=== PATIENT | male | born 1950 | race Caucasian/White ===

== ENCOUNTER 2023-04-28 08:18 | Inpatient (IN) ==
[2023-04-28] MEDS ORDERED: NS 500 ML IV 500 ML IV ONE ×2 (08:30→08:49)
[2023-04-28 08:34] VITALS: BMI 19.2
--- NOTE | 2023-04-28 08:39 | DR.DIARMA ---
HPI Time seen Time Seen by Provider: 04/28/23 08:37 PCP Primary Care Physician: SAW HPI Comment HPI Comment: Patient is 72yr old male in ER with history of diarrhea for 5 days. Patient is from [facility]. He had hand cellilitis and was treated in house and out patient with antibiotic. he is better but 5 days ago diarrhea started. No vomiting or dysuria. History COPD, A FIB and CHF and have pace maker. He is weak and fatigue. Complaint Chief Complaint Doctor Comments: Diarrhea times 5 days. Worse today. Chief Complaint:: Patient states he is visiting his mother from [place] and has had severe diarrhea for the past 5 days. He states he had a staff infection to left hand and received some strong antibiotcs last Sunday. COVID-19 Coronavirus risk:travel/contact w/high risk person: No Has patient experienced Coronavirus symptoms: No Reviewed Nurses notes reviewed: Yes Source History Provided: Patient Mode of Arrival Mode of Arrival: Wheelchair Timing Onset of Chief Complaint: 04/23/23 PMH PMH Past Medical History: Yes Past Medical History: CHF Past Medical History Comment: Prostate CA, pacemaker Past Surgical History: Yes Past Surgical History Comment: Radiation seed implants, pacemaker Family History History of Family Medical Conditions: Yes Family Medical History: Diabetes Mellitus, Coronary Artery Disease and Hypertension Social History Does patient currently use any type of tobacco product: No Have you used tobacco products in the last 12 months: No Type of Tobacco Use: None Does any household member use tobacco: No Alcohol Use: None Do you use any recreational Drugs:: No Lives With: Family Lives Where: Home Travel Risk Coronavirus risk:travel/contact w/high risk person: No Has patient experienced Coronavirus symptoms: No Infectious screening In the last 2 months have you had wt loss of >10#?: YES Have you had fever, night sweats or hemotysis?: No Have you traveled outside the country in the last 6 months?: No Isolation: Standard ROS Review of Systems Constitutional: Weakness and Fatigue; negative Fever Eyes: No Symptoms Reported; negative Blurred Vision ENTM: No Symptoms Reported; negative Nose Discharge or Nose Congestion Respiratoy: No Symptoms Reported; negative Moist Cough, Short of Breath or Wheezing Cardiovascular: Edema (2 plus.); negative Chest Pain Gastrointestinal/Abdominal: Diarrhea; negative Abdominal Pain, Nausea or Vomiting Genitourinary: No Symptoms Reported; negative Dysuria Neurological: Weakness; negative Headache or Dizziness Musculoskeletal: Back Pain and Muscle Pain Integumentary: No Symptoms Reported; negative Rash or Juandice Hematologic/Lymphatic: Easy Bleeding and Easy Bruising Endocrine: No Symptoms Reported; negative Increased Thirst or Increased Urine Psychiatric: No Symptoms Reported All Other Systems: Reviewed and Negative PE Vital Signs Vitals: Vital Signs Pulse Rate 76 Pulse Rate 76 Pulse Rate 93 Pulse Rate 89 Pulse Rate 81 Respiratory Rate 11 Respiratory Rate 28 Respiratory Rate 31 Blood Pressure 98/54 Blood Pressure 104/56 O2 Sat by Pulse Oximetry 100 O2 Sat by Pulse Oximetry 100 O2 Sat by Pulse Oximetry 100 O2 Sat by Pulse Oximetry 92 O2 Sat by Pulse Oximetry 99 General Limitations: No Limitations General Appearance: Alert and In Distress Head Head Exam: Normal Inspection; negative Atraumatic Eyes Eye exam: Normal Appearance; negative Scleral Icterus or Conjunctival Injection ENT ENT Exam: Normal Exam, Normal Oropharynx, Normal External Ear Exam and TM's Normal Bilaterally Neck Neck Exam: Normal Inspection and Trachea Midline; negative Tenderness Chest Chest Inspection: Normal Inspection and Symmetric Chest Wall Rise; negative Tenderness Respiratory Respiratory Exam: Normal Lung Sounds Bilat; negative Accessory Muscle Use, Chest Wall Tenderness or Respiratory Distress Respiratory Exam: Bilateral: Rhonchi Cardiovascular Cardiovascular Exam: Irregular Rhythm; negative Systolic Murmur or Diastolic Murmur Abdominal Exam Abdominal Exam: Normal Inspection, Normal Bowel Sounds and Soft; negative Tenderness Rectal Rectal: Deferred Genitourinary Scrotum: Deferred Extremeties Extremities Exam: Normal Capillary Refill and Edema (2 plus.) Back Back Exam: Normal Inspection; negative (R) CVA Tenderness or (L) CVA Tenderness Neurologic Neurological Exam: Alert and Oriented X3; negative Motor Sensory Deficit Psychiatric Psychiatric Exam: Normal Affect and Normal Mood Skin Skin Exam: Dry MDM Differential Diagnosis Differential Diagnosis: Diarrhea Bacterial, Diarrhea Parasitic, Diarrhea Viral, Diverticular disease, Gastroenteritis, Inflammatory BD and Other (comments) (CHF, COPD, ACUTE RENAL FAILURE, UTI, DEHYDRATION.) COURSE Treatment Treatment: SEE ORDERS DONE WHILE PATIENT WAS IN ER. LABS, XRAY AND CT DISCUSSED. WILL ADMIT TO HOSPITAL FOR FURTHER MANAGEMENT. Consultation Consultation Comments: DISCUSSED PATIENT WITH DR. JORGE. HE WILL ADMIT PATIENT. Education/Counseling Education/Counseling: Patient and Family Educated On: Diagnosis ROR Labs Reviewed Laboratory Results Reviewed?: Yes 04/28/23 14:55 04/28/23 08:42 Laboratory: 04/28/23 08:40 Stool - Final WBC 5.2 X10^3/uL (3.6-10.0) 04/28/23 08:42 RBC 2.77 X10^6/uL (4.7-6.0) L 04/28/23 08:42 Hgb 8.0 g/dL (13.5-18.0) L 04/28/23 08:42 Hct 23.8 % (42.0-54.0) L 04/28/23 08:42 MCV 85.9 fL (80.0-100.0) 04/28/23 08:42 MCH 28.9 pg (27.0-34.0) 04/28/23 08:42 MCHC 33.6 g/dL (33.0-35.0) 04/28/23 08:42 RDW 16.4 % (11.6-16.5) 04/28/23 08:42 Plt Count 186 X10^3/uL (150.0-450.0) 04/28/23 08:42 MPV 9.0 fL (7.4-11.0) 04/28/23 08:42 Neut % (Auto) 74.1 % (42.0-75.0) 04/28/23 08:42 Lymph % (Auto) 10.8 % (21.0-51.0) L 04/28/23 08:42 Kimble % (Auto) 9.4 % (0.0-13.0) 04/28/23 08:42 Eos % (Auto) 3.3 % (0.9-2.9) H 04/28/23 08:42 Baso % (Auto) 2.4 % (0.2-1.0) H 04/28/23 08:42 Neut # (Auto) 3.8 x10^3/uL (2.2-4.8) 04/28/23 08:42 Lymph # (Auto) 0.6 X10^3/uL (1.3-2.9) L 04/28/23 08:42 Kimble # (Auto) 0.5 x10^3/uL (0.3-0.8) 04/28/23 08:42 Eos # (Auto) 0.2 x10^3/uL (0.0-0.2) 04/28/23 08:42 Baso # (Auto) 0.1 X10^3/uL (0.0-0.1) 04/28/23 08:42 Absolute Nucleated RBC 0.1 /100WBC 04/28/23 08:42 PT 60.0 SECONDS (11.8-14.3) 04/28/23 08:42 INR Target Range - 04/28/23 08:42 INR 7.09 (0.8-1.3) H* 04/28/23 08:42 APTT 77.4 SECONDS (22.9-36.5) H 04/28/23 08:42 PTT Comment - 04/28/23 08:42 Sodium 139 mmol/L (136-145) 04/28/23 08:42 Corrected Sodium TNP 04/28/23 08:42 Potassium 3.9 mmol/L (3.5-5.1) 04/28/23 08:42 Chloride 101 mmol/L (98-107) 04/28/23 08:42 Carbon Dioxide 25.3 mmol/L (21-32) 04/28/23 08:42 BUN 134 mg/dL (7-18) H 04/28/23 08:42 Creatinine 3.55 mg/dL (0.70-1.30) H 04/28/23 08:42 Est GFR (MDRD) Af Amer 22 (>60) L 04/28/23 08:42 Est GFR (MDRD) Non-Af 18 (>60) L 04/28/23 08:42 Glucose 98 mg/dL (65-99) 04/28/23 08:42 Calcium 8.5 mg/dL (8.5-10.1) 04/28/23 08:42 Corrected Calcium 9.6 mg/dL (8.5-10.1) 04/28/23 08:42 Total Bilirubin 0.60 mg/dL (0.2-1.0) 04/28/23 08:42 AST 34 Units/L (15-37) 04/28/23 08:42 ALT 11 Units/L (12-78) L 04/28/23 08:42 Alkaline Phosphatase 82 Units/L (46-116) 04/28/23 08:42 B-Natriuretic Peptide 491 pg/mL (0-79) H 04/28/23 08:42 Total Protein 6.4 g/dL (6.4-8.2) 04/28/23 08:42 Albumin 2.6 g/dL (3.4-5.0) L 04/28/23 08:42 Globulin 3.8 g/dL (2.5-4.5) 04/28/23 08:42 Albumin/Globulin Ratio 0.7 Ratio (1.1-2.1) L 04/28/23 08:42 Amylase 57 Units/L (25-115) 04/28/23 08:42 Lipase 96 Units/L (73-393) 04/28/23 08:42 Stl Occult Blood (IFOB) Positive (NEGATIVE) A 04/28/23 08:40 Stool for White Cells Positive (NEGATIVE) A 04/28/23 08:40 Stl C. diff Tox B Gene Negative (NEGATIVE) 04/28/23 08:40 Stl C. diff [id number] Presumptive negative (NEGATIVE) 04/28/23 08:40 Stool H. pylori Ag Negative (NEGATIVE) 04/28/23 08:40 SARS-CoV-2 (PCR) Negative (NEGATIVE) 04/28/23 09:46 Cryptosporid parvum Ag Negative (NEGATIVE) 04/28/23 08:40 Giardia lamblia Ag Negative (NEGATIVE) 04/28/23 08:40 Influenza Type A (PCR) Negative (NEGATIVE) 04/28/23 09:46 Influenza Type B (PCR) Negative (NEGATIVE) 04/28/23 09:46 RSV (PCR) Negative (NEGATIVE) 04/28/23 09:46 XRAY XRAY Interpreted by: Radiologist (REPORT NOTED.) and Self Opioid Opioid Risk Tool Age ([place] box if 16-45): No History of Preadolescent Sexual Abuse: No Total: 0 Total Score Risk Category: Low Risk Copyright: [place] predicting aberrant behaviors Discharge Plan Diagnosis Discharge Problem: Dehydration, COPD exacerbation, Hypercoagulable state, Acute GI bleeding Acute renal failure Qualifiers: Acute renal failure type: unspecified Qualified Code(s): N17.9 - Acute kidney failure, unspecified Diarrhea Qualifiers: Diarrhea type: unspecified type Qualified Code(s): R19.7 - Diarrhea, unspecified CHF (congestive heart failure) Qualifiers: Heart failure type: combined systolic and diastolic Heart failure chronicity: acute on chronic Qualified Code(s): I50.43 - Acute on chronic combined systolic (congestive) and diastolic (congestive) heart failure Anemia Qualifiers: Anemia type: unspecified type Qualified Code(s): D64.9 - Anemia, unspecified Discharge Plan Patient Disposition: 09 ADMITTED INPATIENT Condition: Stable
[2023-04-28] MEDS ORDERED: NS 1,000 ML IV 1,000 ML IV ONE (08:44)
[2023-04-28 08:54] LABS: WHITE BLOOD COUNT 5.2 X10^3/uL (3.6-10.0)
[2023-04-28 08:57] LABS: BASOPHILS # (AUTO) 0.1 X10^3/uL (0.0-0.1); BASOPHILS % (AUTO) 2.4 % (0.2-1.0); EOSINOPHILS # (AUTO) 0.2 x10^3/uL (0.0-0.2); EOSINOPHILS % (AUTO) 3.3 % (0.9-2.9); HEMATOCRIT 23.8 % (42.0-54.0); LYMPHOCYTES # (AUTO) 0.6 X10^3/uL (1.3-2.9); LYMPHOCYTES % (AUTO) 10.8 % (21.0-51.0); MEAN CORPUSCULAR HEMOGLOBIN 28.9 pg (27.0-34.0); MEAN CORPUSCULAR HGB CONC 33.6 g/dL (33.0-35.0); MEAN CORPUSCULAR VOLUME 85.9 fL (80.0-100.0); MONOCYTES # (AUTO) 0.5 x10^3/uL (0.3-0.8); MONOCYTES % (AUTO) 9.4 % (0.0-13.0); NEUTROPHILS # (AUTO) 3.8 x10^3/uL (2.2-4.8); NEUTROPHILS % (AUTO) 74.1 % (42.0-75.0); PLATELET COUNT 186 X10^3/uL (150.0-450.0); RED BLOOD COUNT 2.77 X10^6/uL (4.7-6.0); RED CELL DISTRIBUTION WIDTH 16.4 % (11.6-16.5)
[2023-04-28 09:09] LABS: ALANINE AMINOTRANSFERASE 11 Units/L (12-78); ALBUMIN 2.6 g/dL (3.4-5.0); ALKALINE PHOSPHATASE 82 Units/L (46-116); AMYLASE 57 Units/L (25-115); ASPARTATE AMINO TRANSFERASE 34 Units/L (15-37); BLOOD UREA NITROGEN 134 mg/dL (7-18); CALCIUM 8.5 mg/dL (8.5-10.1); CARBON DIOXIDE 25.3 mmol/L (21-32); CHLORIDE 101 mmol/L (98-107); COR CA(FOR HYPOALB) 9.6 mg/dL (8.5-10.1); CREATININE 3.55 mg/dL (0.70-1.30); GLUCOSE 98 mg/dL (65-99); LIPASE 96 Units/L (73-393); POTASSIUM 3.9 mmol/L (3.5-5.1); SODIUM 139 mmol/L (136-145); TOTAL PROTEIN 6.4 g/dL (6.4-8.2); eGFR NON BLACK RACES 18 (>60)
--- NOTE | 2023-04-28 09:15 | EKG ---
Test Reason : Frequent PVCs Blood Pressure : */* mmHG Vent. Rate : 86 BPM Atrial Rate : * BPM P-R Int : * ms QRS Dur : 138 ms QT Int : 430 ms P-R-T Axes : * 94 -72 degrees QTc Int : 514 ms Atrial fibrillation with frequent ventricular-paced complexes Right bundle branch block Possible Inferior infarct , age undetermined T wave abnormality, consider lateral ischemia Abnormal ECG No previous ECGs available Confirmed by Bradford Wilkins ([id number]) on 04/28/2023 4:50:31 PM Referred By: Confirmed By: Bradford Wilkins
--- NOTE | 2023-04-28 09:26 | RAD ---
EXAM:Portable AP chestHISTORY:SOB, prostate CACOMPARISON:NoneFINDINGS:Cardiomegaly is present with pacemaker. The heart and mediastinum are shifted to the right. Airspace disease and pleural density are present at the right base obscuring the normal right diaphragm and costophrenic angle. The left lung is clear.IMPRESSION:Cardiomegaly. Pleural-parenchymal findings at the right base are nonspecific and may represent chronic scarring or a more acute inflammatory process. There is no prior exam to compare. Follow-up indicated.THIS IS AN ELECTRONICALLY VERIFIED FINAL REPORT04/28/2023 9:19 AM - Electronically signed by Zack Argueta MD
[2023-04-28 09:39] LABS: CRYPTOSPORIDIUM PARVUM ANTIGEN NEGATIVE (NEGATIVE); GIARDIA LAMBLIA ANTIGEN NEGATIVE (NEGATIVE)
--- NOTE | 2023-04-28 09:45 | CT ---
EXAM:ABDOMEN/PELVIS W/O CONHISTORY:Abdominal pain and diarrheaCOMPARISON:None available.TECHNIQUE:Multiple non contrast axial images of the abdomen and pelvis were obtained from the lung bases to the pubic symphysis.. Dose reduction techniques including Automated Exposure Control (AEC) and adjustment of mA and kV were utlized.FINDINGS:The sensitivity for focal lesion detection within the solid abdominal viscera is diminished without the use of IV contrast.The heart is normal in size. Cardiomegaly. Severe coronary calcification. Rounded atelectasis of right lung base with associated chronic effusion. Small left effusion as well.Markedly cirrhotic morphology of the liver. Small volume ascites. No focal lesions. No ductal dilitation. Gallstones present. No evidence of acute gallbladder inflammation. The pancreas is unremarkable. Adrenal glands are normal. Kidneys are without hydronephrosis or nephrolithiasis. Infrarenal abdominal aortic aneurysms measuring 3.5 cm.Severe diverticulosis with what appears to be and inflammatory fistulous tract from the sigmoid colon to an intramural fluid and gas collection within the wall of the bladder dome. This can best be seen on series 5, image 26 and series 3 image 72. This measures 5.5 x 6.4 x 3.5 cm. Prostate nonenlarged. Brachytherapy seeds in prostate gland. 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 This patient will require surgical consultation.2. Infrarenal abdominal aortic aneurysms.3. Cirrhosis of the liver and small volume ascites.4. Rounded atelectasis of the right lung base with chronic effusion.THIS IS AN ELECTRONICALLY VERIFIED FINAL REPORT04/28/2023 9:42 AM - Electronically signed by Amrit Gloria MD
[2023-04-28 09:51] LABS: INR 7.09 (0.8-1.3)
[2023-04-28] MEDS ORDERED: AQUA-MEPHYTON ADULT INJ SC ONE (10:30)
[2023-04-28] MEDS ORDERED: AQUA-MEPHYTON ADULT INJ ONE (10:39)
[2023-04-28] MEDS ORDERED: PROTONIX INJ 40 MG VIAL ONE (10:40)
[2023-04-28] MEDS ORDERED: NS 100 ML IV 100 ML ONE (10:40)
[2023-04-28] MEDS: PROTONIX INJ 40 MG VIAL 80 MG in NS 100 ML IV 80 ML IV SCH ×4 (10:56→20:10)
[2023-04-28] MEDS ORDERED: LOMOTIL PO ONE (11:15)
[2023-04-28] MEDS ORDERED: LOMOTIL PO PRN (11:15)
[2023-04-28] MEDS ORDERED: LOMOTIL ONE (11:27)
[2023-04-28] MEDS: NS 1,000 ML IV 1,000 ML IV SCH ×2 (12:26→18:39)
[2023-04-28] MEDS: XOPENEX 1.25 MG/3 ML NEBULE NEB SCH ×2 (13:08→20:10)
[2023-04-28 15:04] LABS: HEMATOCRIT 23.4 % (42.0-54.0); HEMOGLOBIN 7.9 g/dL (13.5-18.0)
[2023-04-28 16:32] LABS: BILIRUBIN,URINE NEGATIVE (NEGATIVE); BLOOD/HEMOGLOBIN,URINE 2+ (NEGATIVE); GLUCOSE, URINE NEGATIVE (NEGATIVE); KETONES,URINE NEGATIVE (NEGATIVE); LEUKOCYTE ESTERASE ,URINE NEGATIVE (NEGATIVE); NITRITES,URINE NEGATIVE (NEGATIVE); PROTEIN,URINE 1+ (NEGATIVE); UROBILINOGEN,URINE NORMAL (NORMAL)
[2023-04-28 16:33] LABS: APPEARANCE,URINE CLEAR (CLEAR); COLOR,URINE YELLOW (YELLOW)
[2023-04-28 16:40] LABS: BACTERIA,URINE NEGATIVE /HPF (NEGATIVE); SQUAMOUS EPITHELIAL CELL,UR RARE /HPF (NEGATIVE)
[2023-04-28] MEDS ORDERED: PULMICORT NEB TX 0.5 MG NEB ONE (19:04)
[2023-04-28] MEDS: PULMICORT NEB TX 0.5 MG NEB SCH (20:10)
[2023-04-28 20:46] LABS: HEMATOCRIT 21.3 % (42.0-54.0); HEMOGLOBIN 7.2 g/dL (13.5-18.0)
[2023-04-28 20:47] LABS: INR 3.36 (0.8-1.3)
[2023-04-28] MEDS: AMBIEN PO PRN (21:47)
[2023-04-29] MEDS: NS 1,000 ML IV 1,000 ML IV SCH ×2 (02:53→11:38)
[2023-04-29 02:55] LABS: BASOPHILS # (AUTO) 0.1 X10^3/uL (0.0-0.1); EOSINOPHILS # (AUTO) 0.1 x10^3/uL (0.0-0.2); EOSINOPHILS % (AUTO) 3.9 % (0.9-2.9); HEMATOCRIT 20.1 % (42.0-54.0); LYMPHOCYTES # (AUTO) 0.4 X10^3/uL (1.3-2.9); LYMPHOCYTES % (AUTO) 10.4 % (21.0-51.0); MEAN CORPUSCULAR HEMOGLOBIN 29.4 pg (27.0-34.0); MEAN CORPUSCULAR HGB CONC 34.2 g/dL (33.0-35.0); MEAN CORPUSCULAR VOLUME 86.1 fL (80.0-100.0); MONOCYTES # (AUTO) 0.4 x10^3/uL (0.3-0.8); MONOCYTES % (AUTO) 11.9 % (0.0-13.0); NEUTROPHILS # (AUTO) 2.6 x10^3/uL (2.2-4.8); NEUTROPHILS % (AUTO) 71.8 % (42.0-75.0); PLATELET COUNT 141 X10^3/uL (150.0-450.0); RED BLOOD COUNT 2.34 X10^6/uL (4.7-6.0); RED CELL DISTRIBUTION WIDTH 16.7 % (11.6-16.5); WHITE BLOOD COUNT 3.6 X10^3/uL (3.6-10.0)
[2023-04-29 02:57] LABS: HEMOGLOBIN 6.9 g/dL (13.5-18.0); INR 2.35 (0.8-1.3)
[2023-04-29 03:02] LABS: ALANINE AMINOTRANSFERASE 10 Units/L (12-78); ALBUMIN 2.4 g/dL (3.4-5.0); ALKALINE PHOSPHATASE 69 Units/L (46-116); ASPARTATE AMINO TRANSFERASE 29 Units/L (15-37); BLOOD UREA NITROGEN 115 mg/dL (7-18); CARBON DIOXIDE 27.3 mmol/L (21-32); CHLORIDE 106 mmol/L (98-107); COR CA(FOR HYPOALB) 9.3 mg/dL (8.5-10.1); CREATININE 2.84 mg/dL (0.70-1.30); GLUCOSE 88 mg/dL (65-99); MAGNESIUM 2.1 mg/dL (2.0-2.9); POTASSIUM 3.5 mmol/L (3.5-5.1); SODIUM 142 mmol/L (136-145); TOTAL PROTEIN 5.8 g/dL (6.4-8.2); eGFR NON BLACK RACES 23 (>60)
[2023-04-29] MEDS: PROTONIX INJ 40 MG VIAL 80 MG in NS 100 ML IV 80 ML IV SCH ×4 (04:01→22:06)
[2023-04-29] MEDS ORDERED: CONSULT PHARMACY - POTASSIUM & MAGNESIUM XX SCH (05:00)
[2023-04-29] MEDS: XOPENEX 1.25 MG/3 ML NEBULE NEB SCH ×3 (05:32→20:45)
[2023-04-29] MEDS: PULMICORT NEB TX 0.5 MG NEB SCH ×2 (08:28→20:45)
[2023-04-29] MEDS ORDERED: MICRO K EXTEN CAP 10 MEQ PO SCH (09:00)
[2023-04-29] MEDS: LIPITOR TAB 20 MG PO SCH (10:04)
[2023-04-29 10:12] LABS: HEMATOCRIT 21.1 % (42.0-54.0)
[2023-04-29] MEDS ORDERED: NS 500 ML IV 500 ML IV ONE (11:12)
[2023-04-29 19:40] LABS: HEMATOCRIT 27.6 % (42.0-54.0)
[2023-04-29 19:44] LABS: HEMOGLOBIN 9.3 g/dL (13.5-18.0)
--- NOTE | 2023-04-29 20:26 | DR.CONSULT ---
CONSULT Consultation for Day of: Date: 04/28/23 Chief Complaint Chief Complaint: Patient presented to the emergency room complaining of diarrhea and lower abdominal pain. CT scan shows evidence of ascites, cirrhosis, diverticulitis of the sigmoid colon with fistula to the bladder and possible abscess. Patient currently on IV antibiotics. I have been consulted to see him. Past medical history of congestive heart failure, alcohol abuse, cirrhosis, congestive heart failure, pacemaker placement of pacemaker defibrillator .History of prostate cancer treated with insertion of prostate seeds for radiation . Allergies Allergies Allergy/AdvReac Type Severity Reaction Status Date / Time iodine Allergy Verified 04/28/23 08:25 Penicillins Allergy Verified 04/29/23 10:03 History of Present Illness History of Present Illness: see above Past Medical History Past Medical History: Cirrhosis, CHF (has pacemaker/defibrillator), COPD, Dyslipidemia and Hypertension Past Surgical History Surgical History: Other (placement of pacemaker defibrillator ) Family History Family Medical History: [place], Heart Failure and Hypertension Social History Does patient currently use any type of tobacco product: No Have you used tobacco products in the last 12 months: No Type of Tobacco Use: None Does any household member use tobacco: No Alcohol Use: None Drug Use: None Medications Home Medications: iodine Allergy (Verified 04/28/23 08:25) Penicillins Allergy (Verified 04/29/23 10:03) CONTINUE taking the following medications atorvastatin 20 mg tablet 20 mg PO DAILY 04/28/23 [History] furosemide 80 mg tablet (Lasix) 80 mg PO DAILY 04/28/23 [History] lisinopril 2.5 mg tablet 2.5 mg PO DAILY 04/28/23 [History] warfarin 5 mg tablet 5 mg PO DAILY 04/28/23 [History] Review of Systems Constitutional: See HPI and Other (patient thin and cachectic, appears ill ) Eyes: No Symptoms Reported ENT: No Symptoms Reported Respiratory: See HPI Cardiovascular: See HPI Gastrointestinal: See HPI Genitourinary: See HPI Musculoskeletal: No Symptoms Reported Skin: No Symptoms Reported Neurological: No Symptoms Reported Physical Exam Vital Signs: Vital Signs Pulse Rate 82 Pulse Rate 84 Pulse Rate 85 Pulse Rate 80 Pulse Rate 82 Pulse Rate 92 Pulse Rate 86 Pulse Rate 85 Pulse Rate 81 Pulse Rate 81 Respiratory Rate 24 Respiratory Rate 20 Respiratory Rate 19 Respiratory Rate 20 Respiratory Rate 20 Respiratory Rate 20 Respiratory Rate 21 Respiratory Rate 20 Respiratory Rate 20 Blood Pressure 99/55 Blood Pressure 99/55 Blood Pressure 98/57 Blood Pressure 96/60 Blood Pressure 106/58 Blood Pressure 109/61 Blood Pressure 107/58 Blood Pressure 108/55 O2 Sat by Pulse Oximetry 100 O2 Sat by Pulse Oximetry 100 O2 Sat by Pulse Oximetry 100 O2 Sat by Pulse Oximetry 100 O2 Sat by Pulse Oximetry 100 O2 Sat by Pulse Oximetry 98 O2 Sat by Pulse Oximetry 99 O2 Sat by Pulse Oximetry 100 O2 Sat by Pulse Oximetry 99 O2 Sat by Pulse Oximetry 99 CT abdomen with evidence of cirrhosis and ascites, umbilical hernia, diverticulitis of the sigmoid colon with colo- vesicle fistula and possible abscess of the dome of the bladder. Hgb on admission 7.2,BUN on admission 115, Cr= 3.35 on admission INR=7.09, PTT=77.4 Oriented: Normal, Time, Person and Place Eyes: Normal Ear: Normal Nose: Normal Throat: Normal Respiratory: Rhonchi Throughout Cardiovascular: Other (Paced rhythm ) : Other (Shen catheter could not be placed despite multiple attempts. Probably due to radiation therapy from the prostatic seeds planted ) Auscultation: Bowel Sounds: Normal Palpation: Other (not tender. Ascites with umbilical hernia which is reducible. Minimal hypogastric pain to palpation ) Tenderness: Normal Skin: Normal Musculoskeletal: Normal Psychiatric: Normal Mood Description: Calm Affect: Normal Speech Pattern: Clear Plan (1) Colovesical fistula: Status: Acute Plan: Treat patient with IV antibiotics. Correct dehydration and coagulopathy . Use blood and blood products as necessary. This patient is at high risk surgical candidate that will require sigmoid colectomy with colostomy and possible repair of bladder. Patient may be a candidate for colostomy takedown in the future but it is doubtful secondary to his multiple problems including heart failure and ascites with cirrhosis. (2) Cirrhosis: Status: Acute Plan: see above (3) Umbilical hernia: Status: Acute Plan: Can possibly be repaired at the time of the sigmoid colectomy (4) Dehydration: Status: Acute Plan: aggressive hydration (5) Acute renal failure: Status: Acute Qualifiers: Acute renal failure type: unspecified Qualified Code(s): N17.9 - Acute kidney failure, unspecified Narrative Support Text: aggressive hydration (6) Diarrhea: Status: Acute Qualifiers: Diarrhea type: unspecified type Qualified Code(s): R19.7 - Diarrhea, unspecified Plan: hydration (7) CHF (congestive heart failure): Status: Acute Qualifiers: Heart failure chronicity: acute on chronic Heart failure type: combined systolic and diastolic Qualified Code(s): I50.43 - Acute on chronic combined systolic (congestive) and diastolic (congestive) heart failure Narrative Support Text: Must be monitored carefully as he is aggressively hydrated. May require echocardiogram. (8) Coagulation disorder: Status: Acute Plan: Patient treated with vitamin K. This may need to be repeated. May re quire fresh frozen plasma. Currently no active bleeding.
--- NOTE | 2023-04-29 20:53 | NOTE.SOAP ---
Soap Note Note for Day of Date of Exam: 04/29/23 Subjective Data Subjective Data: Patient is stable. Diarrhea is better. Vital signs stable. Dehydration and coagulopathy being corrected but not completely corrected as of yet. Objective Data Temperature: 97.8 F Pulse Rate: 81 Respiratory Rate: 28 Blood Pressure: 107/81 O2 Sat by Pulse Oximetry: 100 Objective Data: Abdomen benign with ascites, positive fluid wave and umbilical hernia. Hgb=9.3 after blood, Cr=2.84, LZV=839 , LFTs WNL Assessment Assessment: Diverticulitis with colo-vesicle fistula and possible abscess, dehydration, coaguloapathy, cirrhosis Plan Plan: patient is stable. He splits time between here and [place]. I believe he would like to go back to [place] for surgery. I think he will need to be a direct transfer.
[2023-04-29] MEDS: AMBIEN PO PRN (22:11)
[2023-04-30] MEDS: PROTONIX INJ 40 MG VIAL 80 MG in NS 100 ML IV 80 ML IV SCH ×5 (03:05→22:34)
[2023-04-30] MEDS: NS 1,000 ML IV 1,000 ML IV SCH ×3 (04:14→20:11)
[2023-04-30 04:58] LABS: BASOPHILS # (AUTO) 0.1 X10^3/uL (0.0-0.1); BASOPHILS % (AUTO) 2.1 % (0.2-1.0); EOSINOPHILS # (AUTO) 0.1 x10^3/uL (0.0-0.2); EOSINOPHILS % (AUTO) 3.7 % (0.9-2.9); HEMATOCRIT 24.9 % (42.0-54.0); HEMOGLOBIN 8.6 g/dL (13.5-18.0); LYMPHOCYTES # (AUTO) 0.3 X10^3/uL (1.3-2.9); LYMPHOCYTES % (AUTO) 9.6 % (21.0-51.0); MEAN CORPUSCULAR HEMOGLOBIN 28.8 pg (27.0-34.0); MEAN CORPUSCULAR HGB CONC 34.5 g/dL (33.0-35.0); MEAN CORPUSCULAR VOLUME 83.5 fL (80.0-100.0); MEAN PLATELET VOLUME 8.1 fL (7.4-11.0); MONOCYTES # (AUTO) 0.4 x10^3/uL (0.3-0.8); MONOCYTES % (AUTO) 11.3 % (0.0-13.0); NEUTROPHILS # (AUTO) 2.7 x10^3/uL (2.2-4.8); NEUTROPHILS % (AUTO) 73.3 % (42.0-75.0); PLATELET COUNT 109 X10^3/uL (150.0-450.0); RED BLOOD COUNT 2.99 X10^6/uL (4.7-6.0); WHITE BLOOD COUNT 3.6 X10^3/uL (3.6-10.0)
[2023-04-30 05:13] LABS: ALANINE AMINOTRANSFERASE 9 Units/L (12-78); ALBUMIN 2.4 g/dL (3.4-5.0); ALKALINE PHOSPHATASE 67 Units/L (46-116); ASPARTATE AMINO TRANSFERASE 26 Units/L (15-37); BLOOD UREA NITROGEN 92 mg/dL (7-18); CARBON DIOXIDE 24.9 mmol/L (21-32); CHLORIDE 108 mmol/L (98-107); COR CA(FOR HYPOALB) 9.3 mg/dL (8.5-10.1); CREATININE 2.05 mg/dL (0.70-1.30); GLUCOSE 84 mg/dL (65-99); POTASSIUM 3.5 mmol/L (3.5-5.1); SODIUM 143 mmol/L (136-145); TOTAL PROTEIN 5.7 g/dL (6.4-8.2); eGFR NON BLACK RACES 34 (>60)
[2023-04-30] MEDS: XOPENEX 1.25 MG/3 ML NEBULE NEB SCH ×3 (06:09→21:20)
[2023-04-30] MEDS ORDERED: CONSULT PHARMACY - POTASSIUM & MAGNESIUM XX SCH (07:00)
[2023-04-30] MEDS ORDERED: MICRO K EXTEN CAP 10 MEQ PO SCH (09:00)
--- NOTE | 2023-04-30 09:03 | OR.IMMED ---
IMMEDIATE POST-OP NOTE Immediate Post-Op Note Pre-Op Diagnosis: Bilateral iliac vein compression Post-Op Diagnosis: same Procedure: bilateral iliac venograms , bilateral intravascular ultrasound, stenting left external and left common femoral veins Description of Procedure: dictated Surgeon/Weigh Machine Operator: Freeman Findings: 43% compression of the left common iliac vein, 40% compression left external iliac vein, 63% compression of the left proximal common femoral vein Estimated Blood Loss: <50 cc Complications: none Discharge Progress Notes: return patient to same day surgery. Discharge when ready. Follow-up one week. Continue usual home medications with the addition of Xarelto 2.5 mg BID times 3 months. May resume usual activity tomorrow
[2023-04-30] MEDS: PULMICORT NEB TX 0.5 MG NEB SCH ×2 (09:20→21:20)
[2023-04-30] MEDS: LIPITOR TAB 20 MG PO SCH (09:44)
--- NOTE | 2023-04-30 16:39 | NOTE.SOAP ---
Soap Note Note for Day of Date of Exam: 04/30/23 Subjective Data Subjective Data: Diarrhea is resolved. Feels better. No complaints. No fever. Denies abdominal pain. Objective Data Temperature: 97.5 F Pulse Rate: 86 Respiratory Rate: 27 Blood Pressure: 116/61 O2 Sat by Pulse Oximetry: 100 Objective Data: Benign abdomen, Hgb=8.6,RGM=460 K, BUN=92, Cr=2.05, not acidotic, Total Bilirubin=1.2, Assessment Assessment: Diverticulitis of sigmoid colon with colo-vesicle fistula, diarrhea with dehydration and acute kidney injury , and coagulopathy. All being corrected. Patient wants to return to his home outside of [facility] to see his oncologist ad then be referred to surgery. I am hesitant due to his overall poor health, but am finally in agreement since he has done so well. He is a high risk surgical candicate. Plan Plan: Correct all the above , D/C when ready and the patient is arranging f/u that suits him.
[2023-04-30] MEDS: AMBIEN PO PRN (20:12)
[2023-05-01] MEDS: NS 1,000 ML IV 1,000 ML IV SCH ×2 (04:47→13:43)
[2023-05-01 04:57] LABS: BASOPHILS # (AUTO) 0.1 X10^3/uL (0.0-0.1); BASOPHILS % (AUTO) 1.6 % (0.2-1.0); EOSINOPHILS # (AUTO) 0.2 x10^3/uL (0.0-0.2); EOSINOPHILS % (AUTO) 3.9 % (0.9-2.9); HEMATOCRIT 24.3 % (42.0-54.0); HEMOGLOBIN 8.3 g/dL (13.5-18.0); LYMPHOCYTES # (AUTO) 0.4 X10^3/uL (1.3-2.9); LYMPHOCYTES % (AUTO) 8.7 % (21.0-51.0); MEAN CORPUSCULAR HEMOGLOBIN 28.8 pg (27.0-34.0); MEAN CORPUSCULAR HGB CONC 34.1 g/dL (33.0-35.0); MEAN CORPUSCULAR VOLUME 84.4 fL (80.0-100.0); MEAN PLATELET VOLUME 8.3 fL (7.4-11.0); MONOCYTES # (AUTO) 0.5 x10^3/uL (0.3-0.8); MONOCYTES % (AUTO) 11.2 % (0.0-13.0); NEUTROPHILS # (AUTO) 3.1 x10^3/uL (2.2-4.8); NEUTROPHILS % (AUTO) 74.6 % (42.0-75.0); PLATELET COUNT 111 X10^3/uL (150.0-450.0); RED BLOOD COUNT 2.88 X10^6/uL (4.7-6.0); RED CELL DISTRIBUTION WIDTH 18.2 % (11.6-16.5); WHITE BLOOD COUNT 4.2 X10^3/uL (3.6-10.0)
[2023-05-01 05:04] LABS: ALANINE AMINOTRANSFERASE 7 Units/L (12-78); ALBUMIN 2.3 g/dL (3.4-5.0); ALKALINE PHOSPHATASE 67 Units/L (46-116); ASPARTATE AMINO TRANSFERASE 24 Units/L (15-37); BLOOD UREA NITROGEN 67 mg/dL (7-18); CALCIUM 7.9 mg/dL (8.5-10.1); CARBON DIOXIDE 23.2 mmol/L (21-32); CHLORIDE 110 mmol/L (98-107); COR CA(FOR HYPOALB) 9.3 mg/dL (8.5-10.1); CREATININE 1.62 mg/dL (0.70-1.30); GLUCOSE 91 mg/dL (65-99); POTASSIUM 3.5 mmol/L (3.5-5.1); SODIUM 142 mmol/L (136-145); TOTAL PROTEIN 5.7 g/dL (6.4-8.2); eGFR NON BLACK RACES 45 (>60)
[2023-05-01] MEDS ORDERED: K-DUR TAB 20 MEQ PO SCH (06:00)
[2023-05-01] MEDS: XOPENEX 1.25 MG/3 ML NEBULE NEB SCH (06:05)
[2023-05-01] MEDS: MAG-OX TAB PO SCH ×2 (06:16→08:09)
[2023-05-01] MEDS ORDERED: CONSULT PHARMACY - POTASSIUM & MAGNESIUM XX SCH (07:00)
[2023-05-01] MEDS: LIPITOR TAB 20 MG PO SCH (08:10)
[2023-05-01] MEDS: PROTONIX INJ 40 MG VIAL 80 MG in NS 100 ML IV 80 ML IV SCH (08:18)
[2023-05-01] MEDS: PULMICORT NEB TX 0.5 MG NEB SCH (08:42)
[2023-05-01 09:56] VITALS: O2SAT 100
[2023-05-01] MEDS ORDERED: NS 250 ML IV 250 ML IV ONE (12:15)
[2023-05-01 16:51] VITALS: BP 88/53; PULSE 73; RESP 24; TEMP 97.3
[2023-05-01 17:30] LABS: HEMATOCRIT 30.6 % (42.0-54.0); HEMOGLOBIN 10.2 g/dL (13.5-18.0)
== END 2023-05-01 18:35 | disposition home or self-care (01) | DRG 698 ==
LOC: ER 08:18 → ICU 10:42
PROVIDERS: ADMIT Family Medicine; ATTEND Family Medicine
DX: I50.43 Acute on chronic combined systolic (congestive) and diastolic (congestive) heart failure; R19.7 Diarrhea, unspecified; K42.9 Umbilical hernia without obstruction or gangrene; D64.89 Other specified anemias; R06.02 Shortness of breath; N17.8 Other acute kidney failure; K70.30 Alcoholic cirrhosis of liver without ascites; R79.1 Abnormal coagulation profile; Z20.822 Contact with and (suspected) exposure to COVID-19; E86.0 Dehydration; J44.9 Chronic obstructive pulmonary disease, unspecified; I48.91 Unspecified atrial fibrillation; N32.1 Vesicointestinal fistula; R53.1 Weakness; Z95.0 Presence of cardiac pacemaker; K57.32 Diverticulitis of large intestine without perforation or abscess without bleeding